=== PATIENT | male | born 1975 | race Two or more races ===

== ENCOUNTER 2022-05-26 12:37 | Emergency (ER) | payer OTHER ==
[~2022-05-26] VITALS: Ht 182.9 cm; Wt 88.5 kg
[2022-05-26] MEDS ORDERED: ECOTRIN81 MG PO (13:41)
== END 2022-05-26 18:17 | disposition home or self-care (01) ==
LOC: ER 12:37
DX: R07.9 Chest pain, unspecified (principal); R00.2 Palpitations

== ENCOUNTER 2023-03-31 22:08 | Inpatient (IN) | payer OTHER ==
[~2023-03-31] VITALS: Ht 182.9 cm; Wt 95.3 kg
[~2023-03-31 22:08] MED LIST: ECOTRIN81 MG PO
[2023-03-31] MEDS ORDERED: LIPITOR40 M1 (22:47)
== END 2023-04-02 10:15 | disposition designated cancer center or children's hospital (05) | DRG 311 ==
LOC: ER 22:08 → MEDI 04-01 11:16 → SEC-K 04-01 11:16 → MEDI 04-01 12:02
PROVIDERS: ADMIT Internal Medicine; ATTEND Internal Medicine
PROC: 4A12X4Z Monitoring of Cardiac Electrical Activity, External Approach (ICD-10-PCS; principal; 2023-04-01)
DX: I20.9 Angina pectoris, unspecified (principal); Z20.822 Contact with and (suspected) exposure to COVID-19